=== PATIENT | male | born 1990 | race Caucasian/White ===

== ENCOUNTER 2018-06-28 13:15 | Emergency (ER) | payer SELFPAY ==
[2018-06-28 13:17] VITALS: BP 133/69; PULSE 96; RESP 16; TEMP 36.1; O2SAT 99; BMI 23.5
--- NOTE | 2018-06-28 13:24 | ED.VIS.GEN ---
History of Present Illness Chief Complaint: Laceration Informant: Patient Onset: Today Context: Sudden Onset Timing: Continuous Quality: Laceration volar surface left forearm Location: Left mid forearm Current Severity: Mild Maximum Severity: Mild Worsened by: Not applicable Relieved by: Not applicable Associated Symptoms: No neurovascular symptoms Narrative: Patient is a 28-year-old [id number] male presents with laceration to the volar surface of his left forearm. This occurred prior to presentation. Tetanus immunization will need updated. He denies paresthesia, anesthesia motor weakness. He has no other complaints. He denies allergies. Prior similar symptoms: No Recent Illness/Hospitalization: No - Past Medical History (1) No significant past medical history Status: Acute Past Medical History - Allergies and Home Meds Allergies/Adverse Reactions: Allergies No Known Allergies Allergy (Verified 06/28/18 13:16) Primary Care Physician: NOT,DEFINED [NON-STAFF] - Past Medical History: None Surgical History: no surgical history Lives: Alone Smoking Status: Current some day smoker Alcohol: Rare Review of Systems Musculoskeletal: Denies: Myalgias, Arthralgias, Neck pain, Back pain, Swelling, Extremity Pain Neurological: Denies: Weakness, Parasthesia, Numbness Hematologic: Denies: Easy bruising, Easy bleeding Allergy: Denies: Uticaria, Swelling of the mouth Physical Exam Vital Signs/Narrative: Vital Signs Temp Pulse Resp BP Pulse Ox 06/28/18 13:17 96.9 F L 96 16 133/69 H 99 Inital Vital Signs reviewed: Yes General: Well nourished, Well developed, No Acute Distress Head: Normocephalic, Atraumatic Eyes: Perrl, EOMI. Negative for: Pale conjunctiva, Scleral icterus, - ENT: Moist mucous membranes, No rhinorrhea Neck: Supple, Nontender Cardiovascular: Regular rate, Regular rhythm, No murmurs Respiratory: No distress, CTA bilaterally, Chest nontender Extremities: No edema, Tenderness, - - Median, radial and ulnar nerve function intact. Radial pulses palpable. Flexor and extensor mechanism intact. Skin: Normal color, No rash, Trauma Neurological: Alert, Oriented x3, Cranial nerves II-XII grossly intact, Normal Strength, Normal Sensation Psychological: Normal affect, Normal Mood Diagnostic/Tx/Re-eval - Medical Decision Making Patient has a 2.7 cm laceration which will require repair please read procedure note Procedures - Lacerations No standard instances Length: 1.06 in Depth: Sub Q Shape: Linear Prep: Radha-Cb Laceration repair: Irrigated - 150 cc, Lidocaine, Local Irrigated (ml): 5 Suture Information: Ethilon, 4-0 ED Disposition - Plan for ED Patient: Disposition: Home or Assisted Living Diagnosis: Laceration of left forearm without complication Instructions: ED Laceration Ext Sutr Stap Tape Referrals: NOT,DEFINED [NON-STAFF] - Anni Anton [NON-STAFF] - 7 Days for suture removal Additional Instructions: Clean laceration with peroxide and Q-tip 3 times a day then apply bacitracin ointment.
[2018-06-28] MEDS: Diphth,Pertuss(Acell),Tet Vac 0.5 ML Vial IM (13:42)
[2018-06-28 15:07] VITALS: BP 124/85; RESP 18
== END 2018-06-28 15:08 | disposition home or self-care (01) ==
PROVIDERS: Emergency Provider Emergency Medicine
DX: S51.812A Laceration without foreign body of left forearm, initial encounter (principal); F17.200 Nicotine dependence, unspecified, uncomplicated; Z23 Encounter for immunization; X58.XXXA Exposure to other specified factors, initial encounter; Y93.9 Activity, unspecified; Y92.89 Other specified places as the place of occurrence of the external cause; Y99.9 Unspecified external cause status
CPT/HCPCS: 12002; 90471; 90715; 99284